=== PATIENT | female | born 1955 | race Caucasian/White ===

== ENCOUNTER → 2017-10-08 | Outpatient (CLI) | payer BC | END | disposition home or self-care (01) | LOC: KCIC MAMMO 11:10 | DX: Z12.31 Encounter for screening mammogram for malignant neoplasm of breast (principal) | CPT/HCPCS: 77067 ==

== ENCOUNTER → 2018-12-31 | Outpatient (CLI) | payer BC ==
--- NOTE | 2018-12-31 15:43 | KCIC ---
EXAM: Bilateral hand and wrist DATE: 12/31/2018 12:00 AM INDICATIONS: MCP pain. Progressing bilateral hand pain. COMPARISON: No prior FINDINGS: PA, oblique and lateral views of the hand and wrist bilaterally show normal symmetric bone density. Regional joint spaces are preserved. Small IP and MCP joint osteophytes are seen intermittently. Negative erosive type changes. Negative periarticular soft tissue calcifications or chondrocalcinosis. Negative focal soft tissue swelling. IMPRESSION: 1. No radiographic findings of inflammatory or erosive arthropathy. 2. Mild degenerative changes predominantly at the IP joints but also at the bilateral third MCP joints. Electronically signed by: Ant Melendez MD (12/31/2018 3:40 PM) [id number]
== END | disposition home or self-care (01) ==
LOC: KCIC 09:54
PROVIDERS: ATTEND Family Medicine
DX: M19.042 Primary osteoarthritis, left hand (principal); M19.041 Primary osteoarthritis, right hand; M25.742 Osteophyte, left hand; M25.741 Osteophyte, right hand
CPT/HCPCS: 73130

== ENCOUNTER → 2019-06-20 | Outpatient (CLI) | payer BC ==
--- NOTE | 2019-06-20 15:57 | KCIC ---
CERVICAL SPINE WO CONTRAST DATE: 06/20/2019 11:00 AM INDICATION: Neck pain with left upper extremity radiculopathy. Bilateral hand paresthesias TECHNIQUE: Multiplanar multisequence magnetic resonance imaging of the cervical spine was performed without administration of intravenous contrast using the standard cervical spine protocol. COMPARISON: None. FINDINGS: Straightening of the cervical lordosis. No acute fracture. Mild multilevel degenerative disc desiccation and disc height loss. No marrow replacing process to suggest malignancy. The spinal cord is normal in signal intensity. On the limited views of the cranial cavity and brain, the cerebellum and valerie have normal morphology and signal characteristics. No Chiari malformation. No soft tissue abnormality. Normal signal voids are present in the vertebral arteries. C2-3: No significant spinal canal stenosis or neural foraminal narrowing. C3-4: No significant spinal canal stenosis or neural foraminal narrowing. C4-5: No significant spinal canal stenosis or neural foraminal narrowing. C5-6: Disc osteophyte complex. Uncovertebral hypertrophy. Mild spinal canal stenosis. No neural foraminal narrowing. C6-7: Mild facet arthropathy. No significant spinal canal stenosis or neural foraminal narrowing. C7-T1: No significant spinal canal stenosis or neural foraminal narrowing. IMPRESSION: Mild cervical spondylosis, detailed level by level above. Electronically signed by: Anjel Corona MD (06/20/2019 3:54 PM) [id number]
== END | disposition home or self-care (01) ==
LOC: KCIC MRI 10:26
PROVIDERS: ATTEND Family Medicine
DX: M47.22 Other spondylosis with radiculopathy, cervical region (principal); M25.78 Osteophyte, vertebrae
CPT/HCPCS: 72141